=== PATIENT | female | born 1960 | race Caucasian/White ===

== ENCOUNTER 2020-10-28 11:36 | Outpatient (CLI) | payer OTHER ==
[~2020-10-28 11:36] MED LIST: FLOVENT 110MCG7.9 GM IH; PROVENTIL3 ML/2.5 M IH; ZYNCOF 20-400120 ML PO
== END 2020-10-28 11:41 | disposition home or self-care (01) ==
LOC: SONOGRAMA 11:36
PROVIDERS: ATTEND Pathology Anatomic Pathology & Clinical Pathology
DX: D34 Benign neoplasm of thyroid gland (principal); E06.3 Autoimmune thyroiditis; E04.1 Nontoxic single thyroid nodule

== ENCOUNTER 2023-03-17 14:15 | Outpatient (CLI) | payer OTHER | END 2023-03-17 14:16 | disposition home or self-care (01) | LOC: RAD 14:15 | PROVIDERS: ATTEND Anesthesiology | DX: N92.4 Excessive bleeding in the premenopausal period (principal); K91.0 Vomiting following gastrointestinal surgery ==

== ENCOUNTER 2023-03-29 07:05 | Day surgery (SDC) | payer OTHER ==
[2023-03-17 14:40] LABS: HEMATOCRIT 40.5 % (36.0-45.00); HEMOGLOBIN 13.4 g/dL (12.0-15.00); MEAN CELL VOLUME 88.8 fL (80.00-100.00); MEAN CORPUSCULAR HEMOGLOBIN 29.3 pg (27.00-32.0); MEAN CORPUSCULAR HGB CONC 33.1 g/dl (32.0-36.0); PLATELET COUNT 257 K/uL (150-450); RED BLOOD COUNT 4.56 M/uL (4.00-6.00); RED CELL DISTRIBUTION WIDTH 13.9 % (11.5-14.5)
[2023-03-17 14:41] LABS: URINE APPEARANCE Clear; URINE BILIRRUBIN Negative (NEGATIVE); URINE BLOOD Moderate; URINE COLOR Yellow; URINE GLUCOSE Negative (NEGATIVE); URINE LEUKOCYTE Small; URINE NITRATE Negative; URINE PROTEIN Negative (NEGATIVE); URINE UROBILINOGEN 0.2 E.U./dl
[2023-03-17 14:44] LABS: URINE BACTERIA 1282.6 uL (0.0-1933); URINE EPITHELIAL CELLS 39.8 uL (0.0-38.8); URINE WBC 50.2 uL (0.0-23.2)
[2023-03-17 14:56] LABS: URINE RBC 1.5 uL (0.0-20.8)
[2023-03-17 15:08] LABS: ALBUMIN 4.2 gm/dL (3.4-5.0); BILIRUBIN TOTAL 0.85 mg/dL (0.3-1.2); CREATININE SERUM 0.66 mg/dL (0.55-1.02); GFR 91.05; GLOBULINA 3.6 G/DL (2.4-3.5); POTASSIUM 5.01 mEq/L (3.5-5.1); TOTAL PROTEIN 7.8 gm/dL (6.4-8.2)
[2023-03-17 15:09] LABS: INR 0.96; PARTIAL THROMBOPLASTIN TIME 27.5 SECONDS (22.0-34.0); PROTHROMBIN TIME 10.1 SECONDS (9.0-11.5)
[~2023-03-29] VITALS: Ht 152.4 cm; Wt 63.5 kg
== END 2023-03-29 16:25 | disposition home or self-care (01) ==
LOC: CIR.AMB 07:05
PROVIDERS: ATTEND Obstetrics & Gynecology
DX: N85.02 Endometrial intraepithelial neoplasia [EIN] (principal); R93.89 Abnormal findings on diagnostic imaging of other specified body structures; Z20.822 Contact with and (suspected) exposure to COVID-19; N95.0 Postmenopausal bleeding